=== PATIENT | male | born 1995 | race Caucasian/White ===

== ENCOUNTER 2020-04-23 07:37 | Outpatient (CLI) | payer BC, SELFPAY ==
--- NOTE | ~2020-04-23 | MR_ITS ---
EXAMINATION: MR brain/brain stem wo/w con EXAM DATE: 04/23/2020 09:05 INDICATION: Dizziness and giddiness. Frontal headaches. TECHNIQUE: Magnetic resonance imaging (MRI) of the brain/brain stem obtained without contrast. Sagit tim T1, axial diffusion, gradient echo (T2*), T1, T2, FLAIR sequences obtained. Patient was then inj ected with 16 cc intravenous Multihance contrast. Axial and coronal postcontrast T1 weighted sequence s obtained. There is no prior study for comparison. FINDINGS: There are no areas of restricted diffusion to suggest acute infarction. There is no acute hemorrhage seen on the T2*, a hemosiderin sensitive sequence. No intraparenchymal brain mass. The ve ntricles are normal in size. There are no extra-axial collections. Flow voids are seen in the cereb ral arteries on the T2-weighted sequences consistent with their expected patency. The orbits are unr emarkable. Soft tissue is unremarkable. Minimal mucoperiosteal thickening. There are no areas of a bnormal enhancement on the post contrast images. IMPRESSION: 1. Unremarkable brain MRI examination. Reviewed, dictated and finalized at location B.
[2020-04-23 08:39] LABS: Estimated Glomerular Filt Rate > 60
== END 2020-04-23 07:38 | disposition home or self-care (01) ==
PROVIDERS: PCP Physician Assistant; Visit Provider Physician Assistant
DX: R42 Dizziness and giddiness (principal)
CPT/HCPCS: 36415; 70553; A9577

== ENCOUNTER 2020-07-07 13:15 | Emergency (ER) | payer BC, SELFPAY ==
[2020-07-07 13:19] VITALS: BP 158/77; PULSE 90; RESP 16; TEMP 36.6; O2SAT 100
[2020-07-07 13:34] LABS: Basophils Percent Auto 0.8 % (0.2-1.2); Eosinophils Absolute Auto 0.3 K/mm3 (0-0.3); Hematocrit 42.6 % (42.0-52.0); Hemoglobin 14.1 g/dL (14.0-18.0); Lymphocytes Absolute Auto 2.03 K/mm3 (0.9-3.2); Lymphocytes Percent Auto 38.3 % (18.3-44.2); Mean Corpuscular HGB Conc 33.1 g/dl (32-36); Mean Corpuscular Hemoglobin 27.7 pg (26-34); Mean Corpuscular Volume 83.7 fl (80-100); Mean Platelet Volume 9.8 fl (7.4-10.4); Monocytes Absolute Auto 0.4 K/mm3 (0.1-0.6); Monocytes Percent Auto 8.1 % (2.6-8.5); Neutrophils Absolute Auto 2.5 K/mm3 (1.3-6.7); Neutrophils Percent Auto 46.8 % (45.5-73.1); Platelet Count Result 186 k/mm3 (150-375); Red Blood Count 5.09 M/mm3 (4.6-6.20); Red Cell Distribution Width 14.2 % (11.5-14.5); White Blood Count 5.3 K/mm3 (4.5-10.0)
[2020-07-07 13:45] LABS: Alanine Aminotransferase 23 U/L (4-50); Albumin Level 4.7 g/dL (3.5-5.1); Alkaline Phosphatase 70 U/L (38-126); Anion Gap 9 mmol/L (8-16); Aspartate Amino Transferase 35 U/L (17-59); Bilirubin,Total 1.2 mg/dL (0.2-1.3); Blood Urea Nitrogen 14 mg/dL (9-20); Calcium 9.6 mg/dL (8.4-10.2); Carbon Dioxide 30 mmol/L (22-30); Chloride 102 mmol/L (98-107); Estimated CRCL calculation 125 ml/min; Estimated Glomerular Filt Rate > 60; Glucose 93 mg/dL (75-110); Lipase 118 U/L (23-300); Potassium 3.9 mmol/L (3.4-5.0); Sodium 141 mmol/L (137-145)
[2020-07-07 13:58] LABS: Add Urine Microscopic? YES; Appearance Urine Clear (Clear); Bilirubin Urine Negative (Negative); Blood Urine Negative (Negative); Color Urine Straw (Yellow); Glucose Urine UA Negative (Negative); Ketones Urine Negative (Negative); Leukocyte Esterase Ur Negative LEU/UL (Negative); Nitrate Urine Negative (Negative); Protein Urine Negative (Negative)
--- NOTE | 2020-07-07 15:10 | ED.ABDPAIN ---
HPI - Abdominal Pain General Chief Complaint: Abdominal Pain Stated Complaint: right lower abdominal pain Time Seen by Provider: 07/07/20 14:03 Source: patient Mode of arrival: ambulatory Limitations: no limitations History of Present Illness HPI narrative: Patient is a 25-year-old male who presents with 3 weeks duration of abdominal pain had CAT scan 2 weeks ago patient had unremarkable CAT scan at that time has continued to have discomfort of the abdomen currently presents in no distress denying any pain patient has follow-up with general surgery on this coming Related Data Allergies Allergy/AdvReac Type Severity Reaction Status Date / Time Sulfa (Sulfonamide Allergy Unknown Unknown Verified 07/07/20 14:57 Antibiotics) Review of Systems Review of Systems: All systems reviewed & are unremarkable except as noted in HPI and below PMFSH Family History Family History (Updated 05/05/18 @ 14:06 by DOCTOR UNKNOWN) Father Diabetes mellitus Hypertension Grandparent Diabetes mellitus Hypertension, Onset Age: 79 Family history of Alzheimer's disease, Onset Age: 79 Mother Depression Asthma Family history of Alzheimer's disease Sibling Patient's brother is in good health Social History Social History Smoking status: Never smoker Second hand tobacco smoke exposure: No Alcohol intake: current Exam Narrative: Exam Narrative: GENERAL: Well-appearing, well-nourished, and in no acute distress. HEAD: Normocephalic, atraumatic. EYES: PERRLA and EOMI. ENT: Nares clear, no rhinorrhea or epistaxis. Mucous membranes moist. CHEST: Clear to auscultation. No respiratory distress. No wheezes rales or rhonchi HEART: Regular rate and rhythm. No murmur heard. Normal peripheral pulses. ABDOMEN: Soft, nontender, nondistended EXTREMITIES: Normal range of motion. No edema. SKIN: Warm, dry, no rash. NEURO: No focal deficits. Alert and oriented x3. PSYCH: Normal mood and affect. Course Course Emergency Course: Patient in the room in no distress aware of case findings treatment plan and diagnosis. Patient without pain at this time in no distress no high risk changes in the blood work felt appropriate for outpatient reevaluation by general surgery as planned Vital Signs Vital signs: Vital Signs Temperature 97.8 F 07/07/20 13:19 Pulse Rate 90 07/07/20 13:19 Respiratory Rate 16 07/07/20 13:19 Blood Pressure 158/77 H 07/07/20 13:19 Pulse Oximetry 100 07/07/20 13:19 Temperature 97.8 F 07/07/20 13:19 Pulse Rate 90 07/07/20 13:19 Respiratory Rate 16 07/07/20 13:19 Blood Pressure 158/77 H 07/07/20 13:19 Pulse Oximetry 100 07/07/20 13:19 MDM - Abdominal Pain MDM Narrative Medical decision making narrative: Patient with abdominal pain of unknown etiology in the room in no distress felt appropriate for outpatient reevaluation for his continued abdominal pain nontender exam today no high risk changes in the blood work felt appropriate for outpatient reevaluation Lab Data Result diagrams: 07/07/20 13:23 07/07/20 13:23 Labs: Lab Results 07/07/20 07/07/20 07/07/20 Range/Units 13:23 13:23 13:33 WBC 5.3 (4.5-10.0) K/mm3 RBC 5.09 (4.6-6.20) M/mm3 Hgb 14.1 (14.0-18.0) g/dL Hct 42.6 (42.0-52.0) % MCV 83.7 (80-100) fl MCH 27.7 (26-34) pg MCHC 33.1 (32-36) g/dl RDW 14.2 (11.5-14.5) % Plt Count 186 (150-375) k/mm3 MPV 9.8 (7.4-10.4) fl Immature Gran % (Auto) 0.0 (0-0.5) % Neut % (Auto) 46.8 (45.5-73.1) % Lymph % (Auto) 38.3 (18.3-44.2) % [place] % (Auto) 8.1 (2.6-8.5) % Eos % (Auto) 6.0 H (0-4.4) % Baso % (Auto) 0.8 (0.2-1.2) % Lymph # (Auto) 2.03 (0.9-3.2) K/mm3 [place] # (Auto) 0.4 (0.1-0.6) K/mm3 Eos # (Auto) 0.3 (0-0.3) K/mm3 Baso # (Auto) 0.0 (0.0-0.1) K/mm3 Abs Immat Gran (auto)
[2020-07-07 16:00] VITALS: BP 157/76; PULSE 88; RESP 18; O2SAT 100
== END 2020-07-07 16:01 | disposition home or self-care (01) ==
PROVIDERS: Emergency Medicine; Emergency Provider Emergency Medicine; PCP Physician Assistant
DX: R10.9 Unspecified abdominal pain (principal)
CPT/HCPCS: 36415; 80053; 81001; 83690; 85025; 99283

== ENCOUNTER → 2020-07-21 09:20 | Outpatient (CLI) | payer BC, SELFPAY ==
--- NOTE | ~2020-07-21 | US_ITS ---
EXAMINATION: US abdomen limited EXAM DATE: 07/21/2020 10:21 INDICATION: R10.11 - Right upper quadrant pain TECHNIQUE: Multiple grayscale and Doppler images of the abdomen right upper quadrant were obtained (b y a technologist who performed the scan) and subsequently reviewed. There is no prior study for claudia danielson. FINDINGS: The pancreatic head and body are normal in appearance. The pancreatic tail is not visualized. The l iver has normal echogenicity and contour. There are no focal liver lesions identified. There is no evidence of intrahepatic biliary duct dilation. Portal venous flow was seen in the hepatopedal, nor mal direction and has normal Doppler waveform. No right-sided hydronephrosis. Common bile duct measures 4 mm, which is normal. The gallbladder wall is normal in thickness, with ex pected amount of distention. No sonographic evidence of pericholecystic fluid. There is no cholelit hiases. Technologist performing exam reports patient did not demonstrate sonographic Ross's sign. Please note that this sign is less reliable in patients who have received pain medication. IMPRESSION: 1. Unremarkable abdominal ultrasound exam. Reviewed, dictated and finalized at location A. CAMERA OPERATOR
== END ==
PROVIDERS: PCP Physician Assistant; Visit Provider Surgery
DX: R10.11 Right upper quadrant pain (principal)
CPT/HCPCS: 76705

== ENCOUNTER → 2020-09-14 11:17 | Outpatient (CLI) | payer BC, SELFPAY ==
--- NOTE | ~2020-09-14 | CT_ITS ---
EXAMINATION: CT abdomen pelvis w con DATE: 09/14/2020 11:51 INDICATION: Right lower quadrant abdominal pain TECHNIQUE: Computed tomography (CT) of the abdomen and pelvis was performed with 100 cc Omnipaque 350 intravenous contrast. Automated exposure control and iterative reconstruction technique were employe d. Exam dose: 441.19 mGy-cm total exam DLP. COMPARISON: 07/21/2020 limited abdominal ultrasound examination FINDINGS: The lung bases are clear of infiltrate or consolidation. Normal heart size. No pericardial or pleural effusion. The liver, gallbladder, bile ducts, spleen, pancreas and pancreatic duct are unremarkable. Normal morphology of the adrenal glands. No renal mass lesion or urinary tract calculus or hydroureteronephrosis. The urinary bladder is unrem arkable. Normal caliber of the abdominal aorta. No intraperitoneal or retroperitoneal or pelvic mass lesion or adenopathy or ascites. Normal retrocecal appendix. No bowel obstruction, bowel wall thickening, pneumatosis or intraperitone al free air is detected. Included skeletal structures are unremarkable. IMPRESSION: No significant abnormality. No evidence of appendicitis. Reviewed, dictated and finalized at Location A. Reviewed, dictated and finalized at location B. T SPECIALIST
== END ==
PROVIDERS: PCP Physician Assistant; Visit Provider Surgery
DX: R10.31 Right lower quadrant pain (principal)
CPT/HCPCS: 74177; Q9967

== ENCOUNTER 2021-01-07 07:57 | Outpatient (CLI) | payer BC, SELFPAY ==
--- NOTE | ~2021-01-07 | NM_ITS ---
EXAMINATION: NM hepatobiliary wo pharm DATE: 01/07/2021 10:29 INDICATION: Right upper quadrant abdominal pain. COMPARISON: None. TECHNIQUE: 4.8 mCi Tc-99m mebrofenin (Choletec) was administered intravenously. Scintigraphic images of the abdomen were obtained for one hour. At the 1 hour time point, the patient drank 8 oz Ensure, and imaging was continued for 60 minutes. Gallbladder ejection fraction was calculated by the technol ogist. FINDINGS: There is normal clearance of radiotracer from the blood pool. There is homogeneous tracer u ptake by the liver. Activity progresses to the bowel and gallbladder. The gallbladder ejection fract ion (GBEF) is 53%. Note that with this technique, normal GBEF >= 33%. IMPRESSION: 1. Normal hepatobiliary scan. Reviewed, dictated and finalized at location A.
== END 2021-01-07 07:58 | disposition home or self-care (01) ==
LOC: ANHIMG 08:01
PROVIDERS: PCP Physician Assistant; Visit Provider Physician Assistant
DX: R10.11 Right upper quadrant pain (principal)
CPT/HCPCS: 78226; A9537

== ENCOUNTER 2021-02-01 15:32 | Outpatient (CLI) | payer BC, SELFPAY ==
--- NOTE | ~2021-02-01 | XR_ITS ---
EXAMINATION: XR ribs RT 2V INDICATION: Right upper quadrant pain TECHNIQUE: 3 views of the right ribs were obtained. COMPARISON: None. FINDINGS: No displaced rib fracture is identified. There are 32 degrees of thoracic dextroscoliosis. No acute osseous findings are evident. The visualized portions of the thorax are unremarkable. IMPRESSION: 1. No displaced rib fracture. Reviewed, dictated and finalized at location B.
== END 2021-02-01 15:33 | disposition home or self-care (01) ==
LOC: ANHIMG 15:41
PROVIDERS: PCP Physician Assistant; Visit Provider Physician Assistant
DX: R10.11 Right upper quadrant pain (principal)
CPT/HCPCS: 71100

== ENCOUNTER 2021-03-20 01:58 | Day surgery (SDC) | payer BC, SELFPAY ==
[2021-03-08 15:21] VITALS: BMI 22.5
--- NOTE | 2021-03-20 08:28 | WPDANESEPPF ---
Anes - Initial Pre Proc Eval Procedure: Operation Date: 03/20/21 10:00 Proposed Procedures p Colonoscopy - Jh Weinstein MD Date/Time: 03/20/21 08:28 Surgeon: Jh Weinstein MD Pre Op Diagnosis: change in bowel habits Patient Data Age: 25 Gender: M Height: 1.93 m Weight: 84 kg Allergies Allergy/AdvReac Type Severity Reaction Status Date / Time Sulfa (Sulfonamide Allergy Unknown Unknown Verified 03/20/21 09:12 Antibiotics) Home Medications Medication Instructions Recorded Confirmed Type Adults Multivitamin 1 cap PO DAILY 03/08/21 03/08/21 History Daily Probiotic 1 cap PO DAILY 03/08/21 03/08/21 History ascorbic acid (vitamin C) 500 mg PO DAILY 03/08/21 03/08/21 History cetirizine [Zyrtec] 10 mg PO DAILY 03/08/21 03/08/21 History cholecalciferol (vitamin D3) 125 mcg PO DAILY 03/08/21 03/08/21 History [Vitamin D3] Patient hx anesthesia problems: none Family hx anesthesia problems: none PMFSH Surgical History Surgical History History of surgical removal of meniscus of knee repair not removal S/P meniscectomy Family History Family History Father Diabetes mellitus Hypertension Grandparent Diabetes mellitus Hypertension, Onset Age: 79 Family history of Alzheimer's disease, Onset Age: 79 Mother Depression Asthma Family history of Alzheimer's disease Sibling Patient's brother is in good health Social History Social History Smoking status: Never smoker Second hand tobacco smoke exposure: No Alcohol intake: current Substance use: never Substance use type: does not use Living arrangements: with family 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 Questions were solicited and answers provided to the satisfaction of the patient/family/POA.
[2021-03-20 09:13] VITALS: BP 106/74; PULSE 72; RESP 16; TEMP 36.3; O2SAT 99; BMI 21.2
--- NOTE | 2021-03-20 09:26 | PM.HPGS ---
History of Present Illness History of Present Illness Consent: Risks, benefits, and alternatives have been discussed and questions answered. Patient agrees to proceed with procedure. Chief complaint: change in bowel habits Narrative: Yaron Meek is a 25 year old male who has had a significant change in bowel habits. For the past year his stools have been often unformed, they will break up when hitting the water, and they often float. In addition he has been dealing with a pain in the right upper quadrant of his abdomen that comes and goes without any particular pattern. It began after he had COVID infection last year but has never left. Studies to date including CT scan and HIDA scan have not shown anything significant Review of Systems Review of Systems: All systems reviewed & are unremarkable except as noted in HPI and below PMFSH Surgical History Surgical History History of surgical removal of meniscus of knee repair not removal S/P meniscectomy Family History Family History Father Diabetes mellitus Hypertension Grandparent Diabetes mellitus Hypertension, Onset Age: 79 Family history of Alzheimer's disease, Onset Age: 79 Mother Depression Asthma Family history of Alzheimer's disease Sibling Patient's brother is in good health Social History Social History Smoking status: Never smoker Second hand tobacco smoke exposure: No Alcohol intake: current Substance use: never Substance use type: does not use Living arrangements: with family 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 care concerns: No Meds Home Medications and Allergies Home Medications Medication Instructions Recorded Confirmed Type Adults Multivitamin 1 cap PO DAILY 03/08/21 03/08/21 History Daily Probiotic 1 cap PO DAILY 03/08/21 03/08/21 History ascorbic acid (vitamin C) 500 mg PO DAILY 03/08/21 03/08/21 History cetirizine [Zyrtec] 10 mg PO DAILY 03/08/21 03/08/21 History cholecalciferol (vitamin D3) 125 mcg PO DAILY 03/08/21 03/08/21 History [Vitamin D3] Allergies Allergy/AdvReac Type Severity Reaction Status Date / Time Sulfa (Sulfonamide Allergy Unknown Unknown Verified 03/20/21 09:12 Antibiotics) Vital Signs Vital Signs - 24 hr 03/20/21 09:13 Temperature 36.3 C L Pulse Rate 72 Respiratory Rate 16 Blood Pressure 106/74 Pulse Oximetry 99 Exam Const: General: alert Orientation/consciousness: patient oriented x3 Resp: Auscultation: clear to auscultation bilaterally Cardio: Rhythm: regular rhythm GI: GI Palp: Yes Soft to palpation and No Tenderness to palpation present (GI) Neuro: General: patient oriented x3 Assessment and Plan Assessment and plan (1) Change in bowel habits: Code(s): R19.4 - Change in bowel habit Status: Acute Assessment and Plan: Colonoscopy with possible biopsy or polypectomy or cautery or injection of substances.
[2021-03-20] MEDS: LACTATED RINGERS 1,000 ML 150 ML IV CONT (09:29)
[2021-03-20 10:07] VITALS: BP 85/43; PULSE 66; RESP 12; O2SAT 99
[2021-03-20 10:17] VITALS: BP 110/58; PULSE 49; RESP 15; O2SAT 99
[2021-03-20 10:27] VITALS: BP 109/65; PULSE 50; RESP 15; O2SAT 99
== END 2021-03-20 10:39 | disposition home or self-care (01) ==
PROVIDERS: PCP Physician Assistant; Visit Provider Internal Medicine Gastroenterology
PROC: 0DJD8ZZ Inspection of Lower Intestinal Tract, Via Natural or Artificial Opening Endoscopic (ICD-10-PCS; CPT 45378; principal; 2021-03-20 10:00)
DX: R19.7 Diarrhea, unspecified (principal)
CPT/HCPCS: 45380; 88305; J2704; J7120